=== PATIENT | male | born 1960 | race Two or more races ===

== ENCOUNTER → 2025-02-16 | Emergency (ER) | payer OTHER ==
[~2025-02-16] VITALS: Ht 180.3 cm; Wt 86.2 kg
[~2025-02-16] MED LIST: LISINOPRIL20 MG; METOPROLOL SUCC50 MG
== END | disposition left against medical advice (07) ==
LOC: ER 19:52
DX: Z53.21 Procedure and treatment not carried out due to patient leaving prior to being seen by health care provider (principal)